=== PATIENT | male | born 1995 | race Two or more races ===

== ENCOUNTER 2017-11-09 13:11 | Emergency (ER) | payer MEDICAID, OTHER ==
[~2017-11-09] VITALS: Ht 182.9 cm; Wt 88.8 kg
[2017-11-09 13:17] VITALS: BP 128/80
== END 2017-11-09 19:38 | disposition left against medical advice (07) ==
LOC: ER 13:12
DX: R07.89 Other chest pain (principal); R06.00 Dyspnea, unspecified; M25.511 Pain in right shoulder; Z53.21 Procedure and treatment not carried out due to patient leaving prior to being seen by health care provider